=== PATIENT | female | born 2000 | race Caucasian/White ===

== ENCOUNTER 2021-07-22 21:04 | Emergency (ER) | payer MEDICAID, OTHER | END 2021-07-22 22:05 | disposition left against medical advice (07) | LOC: MW.ED 21:04 | DX: Z53.21 Procedure and treatment not carried out due to patient leaving prior to being seen by health care provider (principal) ==

== ENCOUNTER 2022-01-27 01:02 | Inpatient (IN) | payer MEDICAID ==
[2022-01-27] MEDS ORDERED: Carboprost Tromethamine 250 MCG/1 ML Amp IM PRN (01:09)
[2022-01-27] MEDS ORDERED: Sodium Chloride 0.9% 2.5 ML Syringe FLUSH PRN (01:09)
[2022-01-27] MEDS ORDERED: Lidocaine 1% 50 ML MDV INJECT PRN (01:09)
[2022-01-27] MEDS ORDERED: Ondansetron 4 MG/2 ML SDV IVPUSH PRN (01:09)
[2022-01-27] MEDS ORDERED: Tranexamic Acid 1,000 MG in Sodium Chloride 0.9% 100 ML IV PRN (01:09)
[2022-01-27] MEDS ORDERED: Misoprostol 200 MCG Tab PO PRN (01:09)
[2022-01-27] MEDS ORDERED: Sodium Chloride 0.9% 20 ML SDV IV PRN (01:09)
[2022-01-27] MEDS ORDERED: Sodium Chloride 0.9% 10 ML Syringe FLUSH PRN (01:09)
[2022-01-27] MEDS ORDERED: Butorphanol 1 MG/ML SDV IVPUSH PRN (01:09)
[2022-01-27] MEDS ORDERED: Water For Irrigation,Sterile 1,000 ML Container IRR PRN (01:09)
[2022-01-27] MEDS ORDERED: Terbutaline 1 MG/ML SDV SUBCUT PRN (01:09)
[2022-01-27] MEDS ORDERED: Methylergonovine 0.2 MG/1 ML Amp IM PRN (01:09)
[2022-01-27] MEDS ORDERED: Oxytocin/0.9 % Sodium Chloride 30 UNIT/500 ML BAG IV SCH ×2 (01:15)
[2022-01-27] MEDS: Lactated Ringers 1,000 ML IV SCH ×3 (02:08→11:18)
[2022-01-27] MEDS ORDERED: Ropivacaine HCl/PF 100 ML ONE (07:56)
[2022-01-27] MEDS ORDERED: Lidocaine 2% with EPINEPHrine 1:200,000 20 ML SDV ONE (07:56)
[2022-01-27] MEDS ORDERED: ePHEDrine 50 MG/ML SDV IVPUSH PRN ×2 (08:05)
[2022-01-27] MEDS ORDERED: Ropivacaine HCl/PF 200 MG in Premix Bag 1 BAG EPIDUR SCH (08:15)
[2022-01-27] MEDS ORDERED: Benzocaine/Menthol 20%-0.5% Spray 78 GM Cannister TOP PRN (12:50)
[2022-01-27] MEDS ORDERED: Witch Hazel Medicated Pads 40/Jar TOP PRN (12:50)
[2022-01-27] MEDS ORDERED: Ibuprofen 400 MG Tab PO PRN (12:50)
[2022-01-27] MEDS ORDERED: Bisacodyl 10 MG Supp RECTAL PRN (12:50)
[2022-01-27] MEDS ORDERED: Lanolin 100% Cream 7 GM Tube TOP PRN (12:50)
[2022-01-27] MEDS ORDERED: Docusate Sodium 100 MG Cap PO PRN (12:50)
[2022-01-27] MEDS ORDERED: Acetaminophen 500 MG Tab PO PRN (12:50)
[2022-01-27] MEDS: Ibuprofen 800 MG Tab PO PRN ×2 (16:04→23:40)
[2022-01-27] MEDS: Acetaminophen 500 MG Tab PO PRN (23:40)
[2022-01-28] MEDS: Ibuprofen 800 MG Tab PO PRN (07:57)
[2022-01-28] MEDS: Acetaminophen 500 MG Tab PO PRN (07:59)
[2022-01-28 08:36] VITALS: BP 117/60; PULSE 69
== END 2022-01-28 14:57 | disposition home or self-care (01) | DRG 807 ==
LOC: MW.OBCHECK 01:02 → MW.OB 01:09 → OBSVTOIN 11:48 → MW.OB 20:00
PROVIDERS: ADMIT Obstetrics & Gynecology Obstetrics; ATTEND Obstetrics & Gynecology Obstetrics
PROC: 10E0XZZ Delivery of Products of Conception, External Approach (ICD-10-PCS; principal; 2022-01-27)
PROC: 3E0R3BZ Introduction of Anesthetic Agent into Spinal Canal, Percutaneous Approach (ICD-10-PCS; 2022-01-27)
PROC: 00HU33Z Insertion of Infusion Device into Spinal Canal, Percutaneous Approach (ICD-10-PCS; 2022-01-27)
DX: O99.214 Obesity complicating childbirth (principal); Z37.0 Single live birth; O77.0 Labor and delivery complicated by meconium in amniotic fluid; Z20.822 Contact with and (suspected) exposure to COVID-19; Z3A.39 39 weeks gestation of pregnancy
CPT/HCPCS: 36415; 59025; 59409; 80305-QW; 85014; 85018; 85027; 86592; 86850; 86900; 86901; A9270-GY; J2370; J2590; J2795; J7120; U0002

== ENCOUNTER 2022-03-03 12:19 | Emergency (ER) | payer MEDICAID ==
[2022-03-03] MEDS ORDERED: Ibuprofen 600 MG Tab PO ONE (13:41)
[2022-03-03 14:05] VITALS: BP 115/69; PULSE 72
== END 2022-03-03 13:57 | disposition home or self-care (01) ==
LOC: MW.ED 12:19
DX: M25.562 Pain in left knee (principal); E66.9 Obesity, unspecified; Z68.30 Body mass index [BMI] 30.0-30.9, adult; Z91.040 Latex allergy status; Z88.8 Allergy status to other drugs, medicaments and biological substances
CPT/HCPCS: 93971; 99283; A9270

== ENCOUNTER 2022-05-22 18:06 | Emergency (ER) | payer MEDICAID ==
[2022-05-22] MEDS ORDERED: Cyclobenzaprine 10 MG Tab PO ONE (18:25)
[2022-05-22] MEDS ORDERED: Ibuprofen 800 MG Tab PO ONE (18:25)
[2022-05-22 19:18] VITALS: BP 103/68; PULSE 96
== END 2022-05-22 19:18 | disposition home or self-care (01) ==
LOC: MW.ED 18:06
DX: S46.912A Strain of unspecified muscle, fascia and tendon at shoulder and upper arm level, left arm, initial encounter (principal); E66.9 Obesity, unspecified; Z91.040 Latex allergy status; Z91.018 Allergy to other foods; Z88.8 Allergy status to other drugs, medicaments and biological substances; Z68.32 Body mass index [BMI] 32.0-32.9, adult
CPT/HCPCS: 73030; 99283; A9270

== ENCOUNTER 2022-07-24 07:08 | Emergency (ER) | payer MEDICAID ==
[2022-07-24] MEDS ORDERED: Sulfamethoxazole/Trimethoprim 800-160 MG Tab PO STA (07:54)
[2022-07-24] MEDS ORDERED: Amoxicillin/Clavulanate K 875-125 MG Tab PO STA (07:54)
[2022-07-24] MEDS ORDERED: Ketorolac 30 MG/ML SDV IM STA (07:55)
[2022-07-24 08:07] VITALS: BP 118/80; PULSE 94
== END 2022-07-24 08:11 | disposition home or self-care (01) ==
LOC: MW.ED 07:08
DX: H00.014 Hordeolum externum left upper eyelid (principal); L03.213 Periorbital cellulitis; Z72.0 Tobacco use; Z91.048 Other nonmedicinal substance allergy status; Z91.040 Latex allergy status; Z88.8 Allergy status to other drugs, medicaments and biological substances
CPT/HCPCS: 96372; 99283; A9270; J1885